=== PATIENT | male | born 1980 | race African-American/Black ===

== ENCOUNTER → 2016-12-29 | Outpatient (CLI) | payer BC ==
--- NOTE | ~2016-12-29 | CR63 ---
[facility] A Service of [facility] & [facility] RADIOLOGY TEXT RESULTS PATIENT: ADITHYA GONZALEZ LOCATION: [facility] : 84 UNIT #: [id number] AGE: [address]: JOSELINE MEDINA APRN SEX: M ORDER DR: [id number] [facility] [address] [place], [place] [address] [id number] O MR#: [id number] Acc #: [id number] NAME: ADITHYA GONZALEZ : 1980 SEX: M STUDY DATE/TIME: 12/29/2016 15:20 UNIT: [facility] ROOM: STUDY DESCRIPTION: CR Chest 2 View Attending Physician: Joseline Medina Aprn Referring Physician: Joseline Medina Aprn Ordering Physician: Joseline Medina Aprn Primary Care Physician: Joseline Medina Aprn MEDICAL IMAGING REPORT This report is preliminary unless electronic signature is present EXAM PA and lateral chest 12/29/2016 COMPARISON None. HISTORY Short of air and dizziness for 6 weeks, PA and lateral views are obtained. The cardiovascular configuration is normal and the lungs are clear. CONCLUSION Normal chest Dictated by... Puma Garcia M.D. THIS IS AN ELECTRONICALLY VERIFIED REPORT Puma Garcia M.D. at 12/30/2016 6:06 PM Radhika TD: 12/29/2016 20:12 JOB #: [id number] MEDICAL IMAGING REPORT Page 1 of 1 COPY
== END | disposition home or self-care (01) ==
LOC: CECH 14:44
DX: R06.02 Shortness of breath (principal)
CPT/HCPCS: 71020